=== PATIENT | male | born 1975 | race Caucasian/White ===

== ENCOUNTER 2023-11-14 12:58 | Emergency (ER) | payer OTHER, SELFPAY ==
[2023-11-14] VITALS (7 sets, daily range): BP systolic 138–168; BP diastolic 87–97; PULSE 57–85; RESP 11–23; TEMP 36.8; O2SAT 97–100; BMI 23.7
[2023-11-14] MEDS: Propofol 200 MG/20 ML Vial IV BOLUS (14:44)
--- NOTE | 2023-11-14 15:33 | EX.ED.UPPERE ---
HPI History of Present Illness HPI Narrative: Patient presents with left forearm fracture that occurred today. Patient states that a tree limb fell onto his left forearm. Patient went to urgent care where he was diagnosed with a fracture of his radius. Patient was placed in a splint and was referred to the emergency department. Patient denies any paresthesias or weakness. Patient denies any other injuries. Patient is unsure of his last tetanus. Patient is right-hand dominant Chief Complaint: Upper Extremity Injury Informant: patient Occured/Mechanism Mechanism/Context: Yes direct blow Onset/Context/Timing Onset: Today Context: Sudden Onset Timing: Continuous Location: Left forearm Associated Symptoms Associated Symptoms: Negative for Parasthesia, Weakness or Loss of Funtion Narrative Tetanus Immunization: Unknown PFSH PFSH Medical History no medical history no medical history Home Medications NK 11/14/23 [History Last Taken Unknown] Allergy/AdvReac Type Severity Reaction Status Date / Time No Known Allergies Allergy Verified 11/14/23 13:01 Surgical History no surgical history no surgical history Social History Smoking Status: Never smoker ROS ROS ED Constitutional Constitutional ED: Denies chills or fever(s) Eyes Eyes: Denies blurry vision or change in vision ENT ENT ED: Denies rhinorrhea or sore throat Cardiovascular Cardiovascular: Denies chest pain or palpitations Respiratory/Chest Respiratory/Chest: Denies cough or dyspnea Gastrointestinal Gastrointestinal: Denies nausea or vomiting Genitourinary Genitourinary ED: Denies dysuria or hematuria Musculoskeletal Musculoskeletal: Denies back pain or neck pain Integumentary Denies abscess or rash Neurologic Neurologic: Denies headache(s) or weakness Allergic/Immunologic Allergic/Immunologic ED: Denies mouth swelling or urticaria EXAM Physical Exam Const Vital Signs: 11/14/23 12:59 11/14/23 12:59 11/14/23 14:52 Temperature 98.2 F 98.2 F Temperature Source Temporal Temporal Pulse Rate 66 66 65 Pulse Rate [1 (Initial Baseline)] Pulse Rate [2] Pulse Rate [3] Pulse Rate [4] Pulse Rate [5] Respiratory Rate 16 16 17 Respiratory Rate [1 (Initial Baseline)] Respiratory Rate [2] Respiratory Rate [3] Respiratory Rate [4] Respiratory Rate [5] Blood Pressure 168/97 H 168/97 H 143/88 H Blood Pressure [1 (Initial Baseline)] Blood Pressure [5] Blood Pressure Mean 120 120 Pulse Ox 97 99 100 Oxygen Delivery Method Room Air Room Air Room Air Oxygen Delivery Method [1 (Initial Baseline)] Oxygen Delivery Method [2] Oxygen Delivery Method [3] Oxygen Delivery Method [4] Oxygen Delivery Method [5] Oxygen Flow Rate (L/min) [1 (Initial Baseline)] Oxygen Flow Rate (L/min) [2] Oxygen Flow Rate (L/min) [3] Oxygen Flow Rate (L/min) [4] Oxygen Flow Rate (L/min) [5] 11/14/23 15:18 Temperature Temperature Source Pulse Rate Pulse Rate [1 (Initial Baseline)] 74 Pulse Rate [2] 85 Pulse Rate [3] 76 Pulse Rate [4] 65 Pulse Rate [5] 57 L Respiratory Rate Respiratory Rate [1 (Initial Baseline)] 23 H Respiratory Rate [2] 19 H Respiratory Rate [3] 18 Respiratory Rate [4] 11 L Respiratory Rate [5] 13 Blood Pressure Blood Pressure [1 (Initial Baseline)] 142/91 H Blood Pressure [5] 145/94 H Blood Pressure Mean Pulse Ox Oxygen Delivery Method Oxygen Delivery Method [1 (Initial Baseline)] Nasal Cannula Oxygen Delivery Method [2] Nasal Cannula Oxygen Delivery Method [3] Nasal Cannula Oxygen Delivery Method [4] Nasal Cannula Oxygen Delivery Method [5] Nasal Cannula Oxygen Flow Rate (L/min) [1 (Initial Baseline)] 2 Oxygen Flow Rate (L/min) [2] 2 Oxygen Flow Rate (L/min) [3] 2 Oxygen Flow Rate (L/min) [4] 2 Oxygen Flow Rate (L/min) [5] 2 Positive well nourished and well developed General Appearance ED: well developed and NAD HEENT Reports moist mucous membranes Neck full ROM and supple Resp normal respiratory effort and clear to auscultation bilaterally Cardio regular rate and regular rhythm GI non-tender and non-distended Palpation: soft Extremity Extremity Narrative: There is a deformity of the left forearm. There is a superficial abrasion over the dorsal and ulnar aspect of the left forearm. There is no active bleeding noted. Radial pulses are equal bilaterally. Sensation was intact to light touch in the radial, median, and ulnar areas. Capillary refill was less than 2 seconds in all digits. Strength is 5/5 in the radial, median, and ulnar areas. Neuro oriented x3, CN's II-XII intact bilaterally, moves all extremities, no focal motor deficits and no sensory deficits noted Sensorium / Orientation: alert Motor Exam: strength 5/5 throughout Psych mental status grossly normal MDM MDM MDM Narrative Medical decision making narrative: Patient was given tetanus booster. Patient was advised of the need for sedation and attempt of reduction of the fracture fragments. Patient is agreeable with this. Patient was given the opportunity ask questions. Patient had no further questions. Patient was placed on continuous cardiac and pulse oximetry monitors. Informed consent was obtained. Patient was given a total of 70 mg of propofol. Patient was sedated. The radius fracture was attempted to be reduced with traction and repositioning. A bacitracin and Telfa dressing was applied to the abrasion a sugar-tong splint was reapplied to the left upper extremity. Repeat x-ray was obtained. Patient tolerated procedure well. Patient will be given referral for orthopedics. Patient was instructed to follow-up in 5 to 7 days. Patient was given a prescription for [place]. Patient understood and was agreeable with the plan. All questions were answered. Procedures Upper Extremity Splints Upper Extremity Splint: Orthoglass and Long arm (Sugar-tong) Splint Fabrication: Fabricated Location: Left Procedural Sedation 1 (Initial Baseline): Consent Signed: Yes Any Problems With Anesthesia: No You/Your family experience fever (hyperthermia) w/anesthesia: No Sedation medication: Propofol Dose: 70 Route: IV Maliampati Score: Class I ASA Classification: I Discharge Plan Triage Chief Complaint: Upper Extremity Injury ED Provider: Isidoro Grijalva Dx/Rx/DC Orders Clinical Impression: Closed left radial fracture Instructions: ED Forearm Fracture with Reduction Prescriptions: No Action NK Primary Care Provider: Agiula Abdi Referrals: Meir Ramirez MD [Med Staff - Active Staff] - 3-5 Days Aguila Abdi MD [Primary Care Provider] - 5-7 Days Disposition Disposition: Home, Self Care
--- NOTE | 2023-11-14 15:50 | RAD_ITS ---
INDICATION: Injury/Pain EXAMINATION/TECHNIQUE: X-RAY - LEFT XR Forearm 2 Views COMPARISON: None. FINDINGS: Acute mildly displaced fracture of the midshaft of the radius. No blastic or lytic lesions. No degenerative changes are seen. Soft tissue swelling of the forearm. RAD/Forearm 2 Views IMPRESSION: Acute mildly displaced fracture of the midshaft of the radius. Electronically Signed: Jose Enrique Espino MD at 17:17 EDT ,
[2023-11-14] MEDS: Ibuprofen 400 MG Tablet 800 MG PO (16:12)
== END 2023-11-14 16:20 | disposition home or self-care (01) ==
PROVIDERS: Emergency Provider Emergency Medicine; PCP Family Medicine; Visit Provider Emergency Medicine
DX: S52.302A Unspecified fracture of shaft of left radius, initial encounter for closed fracture (principal); X58.XXXA Exposure to other specified factors, initial encounter
CPT/HCPCS: 29105; 73090; 90715; 99152; 99284; J7030; A4216

== ENCOUNTER 2023-11-23 07:46 | Day surgery (SDC) | payer SELFPAY ==
[2023-11-23] VITALS (8 sets, daily range): BP systolic 111–125; BP diastolic 71–91; PULSE 55–71; RESP 16; TEMP 36.4–36.7; O2SAT 94–100; BMI 23.3
[2023-11-23] MEDS: Lactated Ringers 1,000 ML 15 ML IV ×2 (08:36→11:27)
--- NOTE | 2023-11-23 09:23 | HP.PCM_ITS ---
HPI - General HPI Narrative SHARRON LOZANO, is a 48 M who presents for left radius ORIF. no changes to h and p. Left UE marked, splint in place. rab, post op instructions and narcotic counselling. no further questions or concerns, ok to proceed. MR#: [id number] Acct: [id number] Name: SHARRON LOZANO Rep #: [id number] : 1975 Provider: Dr. Jerome Her MD Age/Sex: 48/M [place] [facility] [place] Status: Signed Intake Vital Signs 11/14/2411:59 11/17/2411:58 Height 6 ft 6 ft Weight: 172 lb BMI 23.3 Intake Visit Reasons: LEFT ARM Chief Complaint: L arm pain. Is patient in pain?: Yes (Left arm) Pain scale (1-10): 2 Allergies No Known Allergies Allergy (Verified 11/17/23 12:48) Medications hydrocodone-acetaminophen 5-325mg 5mg-325mg 1 tab PO Q6H PRN PRN Pain 3 days #10 TABLETS 11/14/23 [Rx Confirmed 11/17/23] acetaminophen 500 mg tablet (Tylenol Extra Strength) 500 mg PO Q6H PRN 11/17/23 [History Confirmed 11/17/23] ibuprofen 200 mg tablet (Advil) 200 mg PO Q6H PRN 11/17/23 [History Confirmed 11/17/23] PFSH Surgical History (Updated 11/17/23 @ 12:48 by Felipa Renee) H/O hernia repair Social History Smoking Status: Never smoker HPI LEFT ARM Details: This documentation accurately reflects the service provided and the decisions made by me, Dr. Jerome Her MD 11/17/23 6911. Part of today?s visit was documented by [ ], acting as scribe. SHARRON LOZANO is a 48 year old M here today for left radius fracture. 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 monday 3 days ago branch fell on left forearm. no prior inju jl. RHD. Seen at [facility] they did try a closed reduction and then they put him in a [place] style splint had some mild abrasions on the forearm and these were cleaned and dressed. Ortho Exam General General: Yes no acute distress Neurologic: Yes alert and Yes oriented x3 Psychologic: Yes reasonable and appropriate Right Wrist/Hand Skin/Wound: Yes Swelling and No Ecchymosis Left Wrist/Hand Skin/Wound: Yes CDI, Yes wound(s) manually debrided then Saline/Betadine/, Yes Swelling, No Ecchymosis, Yes nail intact, Yes capillary refill normal and No erythema Left Wrist: Yes TTP Fracture site; No Snuffbox tenderness, No Tender to palpate triangular fibrocartilage complex and No Distal radioulnar joint (no instability. ) Motor: EPL: 4, FDP-2: 4, 1st Dorsal Interosseous: 4 and APB: 4 Sensation: Radial: I, Ulnar: I and Median: I WRIST: There is some mild superficial abrasions on the lateral aspect of the mid forearm. This no open injury. Some mild swelling to the forearm no pain with passive stretch forearm compartments soft of the some mild swelling in the forearm no pain at the wrist or elbow. Supplemental Info [facility] [address] [place] [address] Wrist min 3 Views MR#: [id number] Acct: [id number] Name: SHARRON LOZANO Rep #: [id number] : 1975 M 48 From: Ignacio Bob MD PCP: Status: DEP AMB Study: Wrist min 3 Views Date of Exam: 11/14/23 Exam# [id number] Ordering Dr: Jf Sutton INDICATION: contusion, dec ROM EXAMINATION/TECHNIQUE: X-RAY - LEFT XR Wrist Min 3 Views 3 VIEWS COMPARISON: No relevant prior comparison study available FINDINGS: SOFT TISSUES: No soft tissue swelling or gas. No radiopaque foreign body. BONES/JOINTS: Impacted displaced fracture of the mid third of the radial shaft. The remainder of the osseous structures appear intact. Preservation of the joint space.. Small cyst in the distal pole of the scaphoid. RAD/Wrist min 3 Views IMPRESSION: Impacted displaced fracture of the mid third of the radial shaft. Electronically Signed: Ignacio Bob MD at 14:32 EDT , [facility] [address] [place] [address] Forearm 2 Views MR#: [id number] Acct: [id number] Name: SHARRON LOZANO Rep #: [id number] : 1975 M 48 From: Jose Enrique Espino MD PCP: Dr. Aguila Abdi MD Status: DEP ER Study: Forearm 2 Views Date of Exam: 11/14/23 Exam# [id number] Ordering Dr: Isidoro Grijalva DO INDICATION: Injury/Pain EXAMINATION/TECHNIQUE: X-RAY - LEFT XR Forearm 2 Views COMPARISON: None. FINDINGS: Acute mildly displaced fracture of the midshaft of the radius. No blastic or lytic lesions. No degenerative changes are seen. Soft tissue swelling of the forearm. RAD/Forearm 2 Views IMPRESSION: Acute mildly displaced fracture of the midshaft of the radius. Electronically Signed: Jose Enrique Espino MD at 17:17 EDT , Coding Level of Care Code Off vis,new,level 3 Diagnoses Closed left radial fracture S52.92XA Contusion of left wrist S60.212A Assessment and Plan Assessment and Plan (1) Closed left radial fracture: Status: Acute Plan: 48-year-old man with left midshaft radius fracture. This looks relatively transverse 100% displaced. In an active 48-year-old man this is indicated for surgery in the form of open reduction internal fixation to restore the radial bow increased ability anatomic alignment of the forearm restore the length of the bone to avoid wrist problems and other reasons for doing surgery. That being said nonsurgical option is I suppose an option here but would likely result in again shortening of the radial column of the forearm wrist dysfunction loss of the radial bow and loss of range of motion among other problems. We discussed the pros and cons risk benefits of each of these in the treatment patient does want to go ahead with open reduction internal fixation in the form of volar compression plating. I explained the recovery associated with this and go ahead and look for add-on time as soon as possible next week. Pros and cons risks and benefits were discussed with the patient including but not limited to infection, pain, stiffness, bleeding, damage to surrounding structures, neurovascular injury, recurrence or retear, failure or wear of hardware or fixation, instability, fracture, deep vein thrombosis and pulmonary embolism, anesthetic risks, , patient dissatisfaction, need for further surgery and other risks. Patient understood and wished to proceed with surgery, and signed the informed consent documentation. (2) Contusion of left wrist: [facility]: [facility] Medications hydrocodone-acetaminophen 5-325mg 5mg-325mg 1 tab PO Q6H PRN PRN Pain 3 days #10 TABLETS 11/14/23 [Rx Last Taken Unknown] acetaminophen 500 mg tablet (Tylenol Extra Strength) 500 mg PO Q6H PRN pain 11/17/23 [History Last Taken 11/22/23] ibuprofen 200 mg tablet (Advil) 200 mg PO Q6H PRN pain 11/17/23 [History Last Taken Unknown] Allergy/AdvReac Type Severity Reaction Status Date / Time No Known Allergies Allergy Verified 11/23/23 08:31 Surgical History (Updated 11/20/23 @ 11:40 by Sophia Lemon) H/O hernia repair Hx of [facility] Social History Smoking Status: Never smoker Vital Signs Vital Signs Vital Signs: 11/23/23 08:33 11/23/23 08:33 Temperature 97.5 F L Temperature Source Temporal Pulse Rate 69 Respiratory Rate 16 Respiratory Pattern Normal Blood Pressure 125/91 H Blood Pressure Mean 102 Blood Pressure Source Monitor Blood Pressure Position Semi-Fowlers Blood Pressure Location Right Arm Pulse Ox 100 Oxygen Delivery Method Room Air Weight Weight: 172 lb 6.424 oz Body Mass Index (BMI) 23.3
[2023-11-23] MEDS: Cefazolin 2 GM in 0.9% Normal Saline (100mL Bag) 100 ML IV (09:42)
--- NOTE | 2023-11-23 10:00 | RAD_ITS ---
STUDY: X-RAY - LEFT RADIUS AND ULNA REASON FOR EXAM: Male, 48 years old. FX TECHNIQUE: 3 view(s) of the forearm. COMPARISON: Comparison is made with prior study November 14, 2023. FINDINGS: There is no demonstrated soft tissue swelling. Intraoperative imaging provided for open reduction and internal fixation of the mid radial fracture. There is good alignment. RAD/Forearm 2 Views IMPRESSION: Intraoperative imaging provided for ORIF of the mid radial fracture. There is good alignment. Electronically Signed: Patrick Schmitz MD at 15:28 EDT ,
--- NOTE | 2023-11-23 11:05 | PCM.OPRPT ---
Problems Associated Problem List Diagnoses (1) Closed left radial fracture: Report of Operation Date of Procedure: 11/23/23 Pre-Operative Diagnosis: L radial shaft fracture Post-Operative Diagnosis: same Surgery/Procedure Performed:: L radius shaft ORIF Surgeon: Jerome Her Type of Anesthesia: Block,Regional and General Anesthesiologist: Skip Matson Estimated Blood Loss (mL): 25 Description of Procedure: Patient brought to the operating room theater. Placed supine on the table. 2 g IV Ancef administered prior to start of procedure. General anesthesia induced. Bed turned 90 degrees. Arm table to the patient's left side. Tourniquet applied to the left upper extremity appropriately padded. Upper extremity prepped and draped in the usual sterile fashion allowing over 3 minutes drying time prior to draping. Preoperative timeout performed confirm the site patient the surgery. Began by identify the fracture site. Exsanguinating the limb inflated the tourniquet to 250 mmHg. Made a longitudinal volar incision overlying FCR centered over the fracture site. Carried dissection down through skin and subcutaneous tissue achieved meticulous hemostasis. Incised the fascia overlying FCR. Developed the interval between FCR and brachial radialis. Identified the radial artery protected that retracted it radially. Used bipolar cautery to cauterize and protect any crossing vessels. Identified the fracture site elevated FPL as well as any muscle belly of pronator teres on the volar aspect of the radius on either side of the fracture site. Identified the fracture site cleared away any interposed fracture hematoma and periosteum. Use direct manipulation with lobster claw type clamps on both sides directly manipulate the fracture back into an anatomic alignment. I selected and a 7 hole LCDC Synthes plate contoured that to the appropriate radial bow placed this on the volar surface. I inserted 3 fully threaded cortical screws on both sides. On the proximal aspect I drilled eccentrically to achieve compression at the fracture site. This achieved good anatomic reduction for range of motion and stable and solid fixation. I took final AP and lateral radiographs saved them onto the system. Tourniquet let down hemostasis achieved wound thoroughly irrigated. Subcutaneous tissue closed with 2-0 Vicryl suture and skin with 3-0 Monocryl. Skin cleaned with wet and dry dressing followed application of Steri-Strips Adaptic 4 x 4 gauze ABD dressing sterile cast padding and a volar prefabricated fiberglass splint with a hand and wrist in neutral overwrapped gently with Mohan wrap. Patient woken up from a general anesthetic transferred off the operating table taken to postanesthetic care unit in stable condition. All sponge needle and instrument counts were correct. cpt 12068 Complications none Admit VTE Documentation VTE Present on Admission: No VTE Mechan Device Prophylaxis: SCD's VTE Pharm Prophylaxis ordered?: No Reason prophylaxis not ordered:: Treatment Not Indicated Procedures Musculoskeletal 20xxx-29xxx: Other Procedure See Report
--- NOTE | 2023-11-23 11:12 | DCINST_ITS ---
Discharge Instructions Diet Discharge Diet: No restrictions Activity Ice area for (Minutes): 10 Lifting Restrictions: no heavy lifting Keep extremity elevated above heart level: Operative Extremity Dressing / Incision Call your doctor if your incision/area has: Continuous Slow Oozing, Sudden Increased Bleeding, Increased Pain/ Swelling, Increased Redness, Foul Smelling Discharge and Swelling at the incision site Remove Dressing in: leave in place till F/U Follow Up Care Please Follow Up With: Jerome Her MD When: 2 days Test Results: Test results from this visit will be discussed in further detail at your follow- up appointment, if applicable. Discharge Plan Admission Attending Provider: Jerome Her Primary Care Provider: Aguila Abdi Discharge Orders/Prescriptions Prescriptions: New oxycodone-acetaminophen [Percocet] 5-325 mg tablet 1 tab PO Q4H MDD 6 PRN (Reason: pain) 5 Days Qty: 20 0RF No Action acetaminophen [Tylenol Extra Strength] 500 mg tablet 500 mg PO Q6H PRN (Reason: pain) ibuprofen [Advil] 200 mg tablet 200 mg PO Q6H PRN (Reason: pain) hydrocodone-acetaminophen [hydrocodone-acetaminophen] 5-325 mg tablet 1 tab PO Q6H PRN PRN (Reason: Pain) 3 Days Qty: 10 0RF Referrals / Follow Up: Jerome Her MD [Med Staff - Active Staff] - Aguila Abdi MD [Primary Care Provider] - Disposition Disposition (needs filled in before D/C Order can be placed): Home, Self Care
== END 2023-11-23 13:27 | disposition home or self-care (01) ==
LOC: SDC 07:50 → AC 07:51
PROVIDERS: PCP Family Medicine; Referring Provider Orthopaedic Surgery Sports Medicine; Visit Provider Orthopaedic Surgery Sports Medicine
PROC: (CPT 25574; principal; 2023-11-23 09:15)
DX: S52.302A Unspecified fracture of shaft of left radius, initial encounter for closed fracture (principal); S60.212A Contusion of left wrist, initial encounter; X58.XXXA Exposure to other specified factors, initial encounter
CPT/HCPCS: 25574; 64417; 01830; 73090; 76000; 93005; C1713; J7120; J2405